=== PATIENT | female | born 1960 | race Caucasian/White ===

== ENCOUNTER 2016-07-31 10:48 | Emergency (ER) | payer SELFPAY ==
[~2016-07-31] VITALS: Wt 69.0 kg
[2016-07-31] MEDS ORDERED: KETOROLAC 30 MG INJ IV STA (11:12)
[2016-07-31] MEDS ORDERED: morphine 4 MG/ML VIAL IV STA (11:12)
[2016-07-31] MEDS ORDERED: ONDANSETRON 4 MG INJ IV STA (11:12)
[2016-07-31] MEDS ORDERED: BENA20TA48 PO ×2 (11:33→13:10)
--- NOTE | 2016-07-31 12:14 | RADRPT ---
PROCEDURE: XR Left Forearm forearm CLINICAL INDICATION: Fall on outstretched hand TECHNIQUE: AP and lateral radiographs were submitted. COMPARISON: None FINDINGS: Osseous structures: There is a comminuted interarticular fracture involving the distal left radius w ith the main distal fragment displaced dorsally by approximately 4 mm and with mild dorsal angulatio n of the distal articular surface. There is a nondisplaced fracture through the ulnar styloid. Joint spaces: are well maintained with no significant erosion or spurring evident. There is no sig nificant joint effusion Soft tissues: appear unremarkable. IMPRESSION: 1. Comminuted interarticular fracture involving the distal left radius with the main distal fragmen t displaced dorsally by 4 mm with moderate dorsal angulation of the distal articular surface. 2. Nondisplaced fracture through ulnar styloid. Physician Connie Date Time Electronically viewed and signed by Physician Connie on 07/31/2016 12:14 /
--- NOTE | 2016-07-31 12:16 | RADRPT ---
PROCEDURE: XR Left Wrist with Navicular View CLINICAL INDICATION: Fall on outstretched arm TECHNIQUE: 4 views were submitted COMPARISON: None FINDINGS: Osseous structures: There is a comminuted interarticular fracture involving the distal left radius t he main distal fragment displaced dorsally by 4 mm and with moderate dorsal angulation of the distal articular surface. There is a fracture through the ulnar styloid which is nondisplaced. The remai mariano osseous elements including the carpal navicular appear intact. Joint spaces: are well maintained with no significant erosions or spurring identified. Soft tissues: There is diffuse soft tissue swelling. IMPRESSION: 1. Comminuted interarticular fracture involving distal left radius with the main distal fragment di splaced dorsally by 4 mm in with dorsal angulation of the distal articular surface. 2. Nondisplaced fracture through ulnar styloid. 3. Diffuse soft tissue swelling. Physician Connie Date Time Electronically viewed and signed by Physician Connie on 07/31/2016 12:15 /
--- NOTE | 2016-07-31 12:54 | ERD ---
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 swelling mild deformity HPI This is a very pleasant 55-year-old female with a past medical history of hypertension. The patient indicates she had a mechanical slip and fall today and landed on an outstretched left hand. She is experiencing a significant amount of pain over her left wrist that is exacerbated by movement. The patient denies any numbness or tingling of her left hand. The pain is 8 out of 10 in intensity and she did not take any analgesic medication prior to arrival. She stated she did not hit her head or lose consciousness. She was actually on her way to her medical clinic in order to have her medications refilled which is benazepril 50 mg once daily. She did take her antihypertensive medication today but took her last tablet this morning. She denies any chest pain or pressure that radiates to the neck or back or jaw ROS All systems reviewed and are negative except as per history of present illness. Medications Home Meds Reported Medications Benazepril Hcl* (Benazepril Hcl*) 20 Mg Tablet, 20 MG PO DAILY, #30 TAB 07/31/16 Allergies Allergies: Coded Allergies: No Known Allergy (Unverified , 07/31/16) PMhx/Soc Medical and Surgical Hx: pt denies Surgical Hx Hx Cardiac Disorders: Yes (HTN) Hx Alcohol Use: No Hx Substance Use: No Hx Tobacco Use: No Smoking Status: Never smoker Physical Exam Vitals Vital Signs Date Time Temp Pulse Resp B/P Pulse Ox O2 Delivery O2 Flow Rate FiO2 07/31/16 11:35 98.6 78 16 176/109 100 Room Air 07/31/16 10:51 98.6 96 20 213/115 98 Physical Exam Constitutional:Well-developed. Well-nourished. HEENT:Normocephalic. Atraumatic.Pupils were equal round reactive to light. Moist mucous membranes.No tonsillar exudates. No nasoseptal hematoma. No hemotympanum Neck: No nuchal rigidity. No lymphadenopathy. No posterior cervical spine tenderness or step-offs. Respiratory: Not using accessory muscles of respiration.Lungs were clear to auscultation bilaterally. No rhonchi. No rales. No wheezing. Cardiovascular: Regular rate regular rhythm.No murmurs. No rubs were appreciated.S1, S2 normal. Distal pulses are palpable 2+ bilaterally. GI: Abdomen was soft. Nontender. Non Distended. No pulsatile abdominal masses or bruits. No rebound. No guarding. Bowel sounds were present and normal. Muscle skeletal: Tenderness with soft tissue swelling over the distal aspect of the left forearm. Patient unable to flex and extend ulnar or radial deviate the left wrist secondary to pain. Flexion extension of the left elbow appear grossly normal. Patient was able to oppose all digits of the left hand Skin: No petechia, no purpura. No lesions on the palms or the soles of the feet. No maculopapular rash. NEURO: Patient was alert, awake, orientated x3.No facial droop. Gait observed and normal with no ataxia.Speech had regular rate and rhythm. No focal neurological deficits. FDP and FDS are intact of the left upper extremity and sensation intact over the radial ulnar and median nerve dissipation of the left hand Results 24 hrs Current Medications Medications (Trade) Dose Ordered Sig/Cy Route PRN Reason Start Time Stop Time Status Last Admin Dose Admin Morphine Sulfate (morphine) 4 mg ONCE STAT IV 07/31/16 11:12 07/31/16 11:15 DC 07/31/16 11:38 Ondansetron HCl (Zofran Inj) 4 mg ONCE STAT IV 07/31/16 11:12 07/31/16 11:15 DC 07/31/16 11:38 Ketorolac Tromethamine (Toradol) 30 mg ONCE STAT IV 07/31/16 11:12 07/31/16 11:15 DC 07/31/16 11:38 Procedures/MDM This patient presented to the emergency department after she experienced a fall on an outstretched left hand. Radiographic imaging was obtained, reviewed by myself the radiologist and included the left forearm and left wrist. There was a comminuted intra-articular fracture involving the distal left radius with the main distal fragment displaced dorsally by 4 mm with moderate dorsal angulation of the distal articular surface and a nondisplaced fracture through the ulnar styloid. The patient was placed in a volar splint for immobilization and comfort and after was reevaluated by myself and was neurovascularly intact. IV access had been established by nursing staff she received intravenous Toradol morphine and Zofran for analgesic control prior to the splint being placed. I did refill the patient's benazepril medication given that she missed her appointment at her clinic. I explained the importance of following up on an outpatient basis with the orthopedic surgeon for definitive treatment. The patient was discharged home in fair condition. They were instructed to return to the emergency department at any time if there was any worsening of their condition. The patient stated they would follow up with their PCP in the next 24-48 hours to initiate a suitable medication regimen under the care of their PCP as well as to allow their PCP to monitor any drug reactions. The patient was discharged home with prescriptions after they gave informed consent to the new medication. They were also fully informed by myself on the adverse effects and adverse drug interactions in order to provide adequate safeguards to prevent possible adverse reactions to medications. Departure Diagnosis: Primary Impression: Closed fracture of distal end of left radius Encounter type: initial encounter Fracture morphology: other intra- articular Qualified Code: S52.572A - Other closed intra-articular fracture of distal end of left radius, initial encounter Additional Impression: Fracture of ulnar styloid Encounter type: initial encounter Fracture type: closed Fracture alignment : nondisplaced Laterality: left Qualified Code: S52.615A - Closed nondisplaced fracture of styloid process of left ulna, initial encounter Condition: Fair OPAL GUSMAN Jul 31, 2016 12:54
[2016-07-31] MEDS ORDERED: BENA40TA41 PO ×2 (12:55→13:09)
[2016-07-31] MEDS ORDERED: HYDR-906 PO (12:56)
[2016-07-31 13:53] VITALS: BP 152/103; PULSE 75; RESP 18; TEMP 99.3
== END 2016-07-31 13:56 | disposition home or self-care (01) ==
LOC: E/R 10:48
DX: S52.572A Other intraarticular fracture of lower end of left radius, initial encounter for closed fracture (principal); S52.615A Nondisplaced fracture of left ulna styloid process, initial encounter for closed fracture; I10 Essential (primary) hypertension; W01.0XXA Fall on same level from slipping, tripping and stumbling without subsequent striking against object, initial encounter; Y92.9 Unspecified place or not applicable
CPT/HCPCS: 29125; 73090; 73110; 96374; 96375; 99284; J1885; J2270; J2405